=== PATIENT | female | born 1960 | race Caucasian/White ===

== ENCOUNTER → 2018-04-10 | Outpatient (CLI) | payer BC ==
[~2018-04-10] MED LIST: CALCIUM600 MG PO; LEVOTHYROXINE0.2 MG PO; LIPITOR 40MG TA40 MG PO; SYNTHROID0.1 MG/TAB PO; ZYRTEC 10MG10 MG PO
== END ==
LOC: MC.RAD 03-08 16:00
DX: Z12.31 Encounter for screening mammogram for malignant neoplasm of breast (principal)

== ENCOUNTER 2021-10-10 20:00 | Emergency (ER) | payer BC ==
[~2021-10-10] VITALS: Ht 175.3 cm; Wt 81.8 kg
[2021-10-10 20:02] VITALS: TEMP 98
[2021-10-10] MEDS ORDERED: SYNTHROID0.125 MG/T PO (21:16)
[2021-10-10] MEDS ORDERED: ZOLOFT 50MG50 MG PO (21:16)
[2021-10-10] MEDS ORDERED: FLONASE NASAL S16 GM NS (21:17)
[2021-10-10] MEDS ORDERED: PERCOCET 325 MG1 TA2 PO (21:55)
[2021-10-10 22:30] VITALS: BP 144/78; PULSE 76
== END 2021-10-10 22:30 | disposition home or self-care (01) ==
LOC: COL.ER 20:00
DX: S42.302A Unspecified fracture of shaft of humerus, left arm, initial encounter for closed fracture (principal); S00.83XA Contusion of other part of head, initial encounter; F17.210 Nicotine dependence, cigarettes, uncomplicated; W19.XXXA Unspecified fall, initial encounter; Y92.000 Kitchen of unspecified non-institutional (private) residence as the place of occurrence of the external cause
CPT/HCPCS: J3010

== ENCOUNTER → 2022-06-28 | Outpatient (CLI) | payer BC ==
[~2022-06-28] MED LIST changes: +FLONASE NASAL S16 GM NS; +PERCOCET 325 MG1 TA2 PO; +SYNTHROID0.125 MG/T PO; +ZOLOFT 50MG50 MG PO
== END ==
LOC: COL.RAD 10:00
DX: Z12.2 Encounter for screening for malignant neoplasm of respiratory organs (principal); J43.9 Emphysema, unspecified; F17.200 Nicotine dependence, unspecified, uncomplicated